=== PATIENT | male | born 1950 | race Caucasian/White ===

== ENCOUNTER 2021-02-26 11:12 | Outpatient (CLI) | payer MEDICARE, OTHER, SELFPAY ==
[2021-02-26 12:10] VITALS: BP 133/87; PULSE 73; RESP 18; TEMP 36.6; O2SAT 97
[2021-02-26 13:07] VITALS: BP 118/77; PULSE 71; RESP 17; O2SAT 93
[2021-02-26 13:55] VITALS: BP 135/86; PULSE 65; RESP 17; TEMP 36.7; O2SAT 94
--- NOTE | 2021-03-05 18:35 | PC.SOCIAL ---
10-1, 7784 antibody infusion follow up call, unable to reach patient.
== END 2021-02-26 11:13 | disposition home or self-care (01) ==
LOC: OPS 11:15
PROVIDERS: PCP Physician Assistant; Visit Provider Nurse Practitioner Family
DX: U07.1 COVID-19 (principal)
CPT/HCPCS: 96365

== ENCOUNTER 2022-08-23 09:18 | Outpatient (CLI) | payer MEDICARE, OTHER, SELFPAY ==
--- NOTE | 2022-08-23 09:27 | MR_ITS ---
WS: [id number] EXAMINATION: MR shoulder RT wo con* [id number] ORDER DATE: 08/23/2022 9:42 AM COMPARISON: None. HISTORY: COMPLETE ROTATOR CUFF TEAR OR RUPTURE OF R SHOULDER CONTRAST: None. TECHNIQUE: Axial T2 STAR, coronal proton density fat sat, sagittal T2 fat sat, sagittal proton densit y fat sat, axial proton density fat sat, coronal T2 fat sat, and coronal T1 performed. After contrast , axial T1 fat sat, coronal T1 fat sat, and sagittal T1 fat sat were performed. FINDINGS: Moderate degenerative arthritis AC joint with mild edema. Small amount of subacromial fluid. Mild che rowing of the subacromial space. Impingement on the distal supraspinatus. Tiny insertional tear dista l supraspinatus. Tendinopathy supraspinatus with chronic thinning. Tiny intrasubstance and undersurfa ce tears distal supraspinatus. Normal infraspinatus. Normal teres minor. Normal subscapularis. Partial intrasubstance tear involving the proximal biceps tendon within the bicipital groove extending into the rotator interval with teno synovitis. Intra-articular biceps tendon appears intact. Tenosynovitis along the biceps tendon sheath . Biceps labral anchor appears intact. Subchondral cystic change involving the glenoid. Degenerative fr aying of the glenoid labrum. MR/MR shoulder RT wo con* [id number] IMPRESSION: 1. Moderate to advanced arthritis AC joint with mild downsloping acromion. Imp ingement on the distal supraspinatus with tendinopathy. 2. Tiny distal supraspinatus insertional tear. Additional small intrasubstance and undersurface tears involving the distal supraspinatus. 3. Rotator cuff is otherwise intact. 4. Intrasubstance tear involving the proximal biceps tendon within the bicipit al groove extending into the rotator interval with tenosynovitis. Intra-articul ar biceps tendon appears intact. Tenosynovitis along the biceps tendon sheath. 5. Advanced degenerative narrowing of the glenohumeral articulation. Subchondr al cystic change involving the glenoid.
== END 2022-08-23 09:19 | disposition home or self-care (01) ==
LOC: RAD 09:23
PROVIDERS: Visit Provider Orthopaedic Surgery
DX: M75.121 Complete rotator cuff tear or rupture of right shoulder, not specified as traumatic (principal); M75.101 Unspecified rotator cuff tear or rupture of right shoulder, not specified as traumatic
CPT/HCPCS: 73221